=== PATIENT | female | born 1945 | race Caucasian/White ===

== ENCOUNTER 2019-10-19 21:42 | Emergency (ER) | payer MEDICARE, OTHER ==
[~2019-10-19] VITALS: Ht 180.3 cm; Wt 96.2 kg
--- OUTSIDE RECORDS SUMMARY | 2019-10-19 21:45 | XMS REPORT | Clinical Summary ---
Author Author [facility] Organization [facility] Address Unknown Phone Unavailable Care Team Providers Care Bridge Game Director Name Role Phone Danish Del Toro MD PCP Allergies Comments Active Allergy Reactions Severity Noted Date Codeine Itching 09/26/2016 Medications End Date Status Medication Sig Dispensed Refills Start Date Active LEVOTHYROXINE SODIUM Take by 0 (LEVOTHYROXINE ORAL) mouth. Active traMADol (ULTRAM) 50 mg Take 50 mg by 0 tablet mouth every 6 (six) hours as needed for moderate pain. Active Problems Problem Noted Date History of bowel diversion surgery 04/24/2017 Ileostomy present 04/22/2017 CVA (cerebral vascular accident) 11/19/2016 Perforated bowel 10/11/2016 Polymicrobial bacterial infection 10/10/2016 Anemia due to blood loss 10/09/2016 S/P exploratory laparotomy 10/07/2016 S/P R hemicolectomy 10/07/2016 Acute ischemic stroke 10/07/2016 Purulent peritonitis 10/07/2016 Hyperglycemia 10/06/2016 SALLY (acute kidney injury) 10/06/2016 Lactic acidosis 10/06/2016 Hepatic insufficiency 10/06/2016 Bowel perforation 10/06/2016 Aortic thrombus (distal ascending) 10/06/2016 Benign polycythemia due to fall in plasma volume Acute respiratory insufficiency 10/06/2016 Possible Stenosis of right carotid artery 10/06/2016 Incomplete paraplegia 10/03/2016 Thoracic spondylosis with cord compression 7 Respiratory failure 10/01/2016 Thoracic stenosis 09/27/2016 Family History Medical History Relation Name Comments Thrombocytopenia Mother ITP Thrombocytopenia Sister pramod TTP age 24 Clotting disorder Neg Hx Relation Name Status Comments Father Mother (Age 86) Sister pramod Social History Date Tobacco Use Types Packs/Day Years Used Quit: 06/29/2016 Former Smoker Smokeless Tobacco: Never Used Drinks/Week oz/Week Comments Alcohol Use No Sex Assigned at Date Recorded Not on file Industry Job Start Date Occupation Not on file Not on file Not on file Travel End Travel History Travel Start No recent travel history available. Last Filed Vital Signs Not on file Plan of Treatment Health Maintenance Due Date Last Done Comments BREAST CANCER SCREENING 12/07/1997 COLONOSCOPY SCREENING 12/07/1997 SHINGLES VACCINES (#1) 12/07/1997 65+ PNEUMOCOCCAL VACCINE 12/07/2012 (1 of 2 - PCV13) INFLUENZA VACCINE 12/12/2019 Implants Device Identifier Shelf Expiration Date Model / Serial / L ot Implanted Type Area Manufactur er 2993 / / Kit Hmstc Mtrx W/ F2 8ml Surgiflo - Surgical N/A: N/A ETHICON [id number] Implants; [facility] Implanted: 09/27/2016 at [facility] (Quantity not on file) Extenders; Surgical Wires [id number] [place] / / Particle Hmstc Absrbl [place] 5gm Surgical N/A: N/A MEDAFOR Mph - [id number] Implants; Implanted: 10/06/2016 at [facility] (Quantity not on file) Extenders; Surgical Wires [id number] / / Drain Wnd Chnl 24fr 5/16in Rnd Hbls Surgical N/A: N/A BARD Fl-Flut Angie - [id number] Implants; MEDICAL Implanted: 10/06/2016 at [facility] (Quantity not on file) Extenders; Surgical Wires [id number] [place] / / Particle Hmstc Absrbl [place] 5gm Surgical N/A: N/A MEDAFOR Mph - [id number] Implants; Implanted: 04/22/2017 at [facility] (Quantity not on file) [facility]; Surgical Wires [id number] [place] / / Particle Hmstc Absrbl [place] 5gm Surgical N/A: N/A MEDAFOR Mph - [id number] Implants; Implanted: 04/22/2017 at [facility] (Quantity not on file) [facility]; Surgical Wires Results Not on fileafter 10/18/2018 Insurance Type Payer Benefit Subscriber ID Effective Phone Address Plan / Dates Group [facility] MEDICARE [facility] xxxxxxxxx 2017-P MEDICARE resent HMO/PPO [employer] Other 1945 [id number] (Home) [place] [id number] Advance Directives For more information, please contact: [phone] 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
--- OUTSIDE RECORDS SUMMARY | 2019-10-19 21:45 | XMS REPORT | Continuity of Care Document ---
Author Author [facility] Organization [facility] Address [address] [place] [address] Phone Unavailable Care Team Providers Care Tomato Paste Maker Name Role Phone Clinton Mcclendon MD PCP DR PRABHAKAR GARCIA Unavailable VISH, DR Julia VELAZQUEZ [employer] Unavailable DANISH MCCLENDON Unavailable DR PRABHAKAR GARCIA Unavailable VISH, DR Julia Ortiz Unavailable DANISH MCCLENDON Unavailable Payers Payer Name Policy Type Policy Number Effective Date Expiration Date S ource Problems Condition Name Condition Details Condition Category Status Onset Date Resolution Date Last Treatment Date Treating Clinician Comments Source History of bowel diversion surgery History of bowel diversion vivar rgery Disease Active 2017-04-24 00:00:00 [place] [facility] Ileostomy present Ileostomy present Disease Active 2017-04-22 00:00:00 Ruperto Colon CVA (cerebral vascular accident) CVA (cerebral vascular accident ) Disease Active 2016-11-19 00:00:00 [place] Perforated bowel Perforated bowel Disease Active 2016-10-11 00:00:00 Ruperto Colon Polymicrobial bacterial infection Polymicrobial bacterial infect ion Disease Active 2016-10-10 00:00:00 [place] [facility] Anemia due to blood loss Anemia due to blood loss Disease Acti ve 2016-10-09 00:00:[address] S/P exploratory laparotomy S/P exploratory laparotomy Disease Active 2016-10-07 00:00:[address] S/P R hemicolectomy S/P R hemicolectomy Disease Active 2016-10-07 00:00 :00 Ruperto Colon Acute ischemic stroke Acute ischemic stroke Disease Active 11-15-27 00:00:00 Ruperto Salas t Purulent peritonitis Purulent peritonitis Disease Active 00:00:00 Ruperto Colon Hyperglycemia Hyperglycemia Disease Active 2016-10-06 00:00:00 Ruperto Colon SALLY (acute kidney injury) SALLY (acute kidney injury) Disease Ac tive 2016-10-06 00:00:[address] Lactic acidosis Lactic acidosis Disease Active 2016-10-06 00:00:00 Ruperto Colon Hepatic insufficiency Hepatic insufficiency Disease Active 11-14-26 00:00:00 Ruperto hopson Bowel perforation Bowel perforation Disease Active 2016-10-06 00:00:00 Ruperto Colon Aortic thrombus (distal ascending) Aortic thrombus (distal ascen ding) Disease Active 2016-10-06 00:00:00 [facility] Benign polycythemia due to fall in plasma volume Benig n polycythemia due to fall in plasma volume Disease Active 2016-10-06 00:00:00 Ruperto Colon Acute respiratory insufficiency Acute respiratory insufficiency Dis ease Active 2016-10-06 00:00:00 Ruperto Colon Possible Stenosis of right carotid artery Possible Myles nosis of right carotid artery Disease Active 2016-10-06 00:00:00 Sav Colon Incomplete paraplegia Incomplete paraplegia Disease Active 11-15-23 00:00:00 Ruperto Salas t Thoracic spondylosis with cord compression Thoracic sp ondylosis with cord compression Disease Active 2016-10-01 00:00:00 Ruperto Colon Respiratory failure Respiratory failure Disease Active 2016-10-01 00:00 :00 Ruperto Colon Thoracic stenosis Thoracic stenosis Disease Active 2016-09-27 00:00:00 Ruperto Colon Allergies, Adverse Reactions, Alerts Allergy Name Allergy Type Status Severity Reaction(s) Onset Date Inacti ve Date Treating Clinician Comments Source Codeine Propensity to adverse reactions to drug Active Itching 2016-09-26 00:00:00 Ruperto Salas t No Known Allergies DA Active U 2012-02-21 00:00:00 [facility] [place] Family History Family Member Diagnosis Comments Start Date Stop Date Source Natural mother Thrombocytopenia Sav Colon Natural sister Thrombocytopenia Sav Colon Family member Clotting disorder Sav Colon Social History Social Habit Start Date Stop Date Quantity Comments Source Sex Assigned At [facility] Alcohol intake 2018-03-08 00:00:00 2018-03-08 00:00:00 Current non-drinker of alcohol (finding) Ruperto Colon History of tobacco use 2016-06-29 00:00:00 Current smoker Ruperto Colon Smoking Status Start Date Stop Date Source Former smoker 2018-03-08 00:00:00 2018-03-08 00:00:00 Ruperto Colon Medications Ordered Medication Name Filled Medication Name Start Date Stop Da te Current Medication? Ordering Clinician Indication Dosage Frequency Signature (SIG) Comments Components Source LEVOTHYROXINE SODIUM (LEVOTHYROXINE ORAL) 2017-04-28 13:35:14 Yes Take by mouth. Ruperto Colon traMADol (ULTRAM) 50 mg tablet 2017-04-28 13:35:14 Yes 50mg Q6H Take 50 mg by mouth every 6 (six) hours as needed for moderate pain. Ruperto Colon Procedures This patient has no known procedures. Plan of Care Planned Activity Planned Date Details Comments Source Future Scheduled Test 2019-12-12 00:00:00 INFLUENZA VACCINE [code = INFLUENZA VACCINE] [facility] Future Scheduled Test 2012-12-07 00:00:00 65+ PNEUMOCOCCAL V ACCINE (1 of 2 - PCV13) [code = 65+ PNEUMOCOCCAL VACCINE (1 of 2 - PCV13)] [facility] Future Scheduled Test 1997-12-07 00:00:00 BREAST CANCER SCRE ENING [code = BREAST CANCER SCREENING] [facility] Future Scheduled Test 1997-12-07 00:00:00 COLONOSCOPY SCREEN ING [code = COLONOSCOPY SCREENING] [facility] Future Scheduled Test 1997-12-07 00:00:00 SHINGLES VACCINES (#1) [code = SHINGLES VACCINES (#1)] Ruperto Colon Encounters Start Date/Time End Date/Time Encounter Type Admission Type [facility] Care Department Encounter ID Source 2018-11-09 20:01:00 2018-11-09 21:00:00 Emergency E PRABHAKAR GARCIA [facility] [id number] [facility] 2018-10-22 19:33:00 2018-10-22 21:12:00 Emergency DEJAN QUINTANA [facility] ECC [id number] [facility] 2017-07-10 11:11:00 2017-07-10 23:59:00 Outpatient DANISH OLIVER [facility] RAD [id number] [facility] Results Test Description Test Time Test Comments Results Result Comments Source - PET/CT TUMOR SK MIDTH 2018-09-22 16:19:00 FAX: Patty Richter MD [phone] [place]: St: REG FAX: Danish Lang MD [phone] Name: JOHN COBIAN [facility] : 1945 Age/S: 72/F [address] [facility] Unit #: [id number] Loc: [place] [address] Phys: Patty Deluna MD Acct: [id number] Dis Date: Status: REG CLI PHONE #: [phone] Exam Date: 09/22/2018 1220 FAX #: [phone] Reason: R91.8 EXAMS: CPT CODE: [id number] PET/CT TUMOR SK MIDTH [id number] HISTORY: R91.8. COMPARISON: None available. PET/CT SCAN: 11 mCi of FDG administered. Images obtained from the skull base to the upper thighs 1 hour postinjection. Blood glucose level = 78 mg/dL. HEAD AND NECK: Intense uptake within the brain parenchyma limited evaluation. Physiologic pharyngeal uptake. CHEST: No lung parenchymal uptake is noted. Left basal subsegmental atelectasis and scarring. Slight loss of lung volume and shift the mediastinum towards the left. No abnormal uptake. No pathologic hilar, mediastinal or axillary uptake or adenopathy. No chest wall or breast uptake. Mild left thyromegaly without abnormal uptake. ABDOMEN: No liver or adrenal diastases or uptake. No pancreatic or splenic uptake. Excretion from both kidneys without abnormal uptake. No pathologic mesenteric, retroperitoneal or retrocrural adenopathy or uptake. Minimal excretion into the bowel. Colostomy in the right lower abdomen wall. No abnormal uptake. Patient is post partial right hemicolectomy. PELVIS: Extensive excretion into the sigmoid colon with severe diverticulosis. Excretion into the urinary bladder. No pelvic pathologic adenopathy. MUSCULOSKELETAL: No abnormal uptake. IMPRESSION: Nodular atelectasis in the left lateral lung base and lower lobe with scarring without abnormal uptake. No pathologic hilar, mediastinal or axillary adenopathy or uptake. Colostomy in the right lower abdominal wall without abnormal uptake. Patient is post right hemicolectomy. No abnormal uptake within the colostomy site. Excretion into the sigmoid colon with extensive diverticulosis. PAGE 1 Signed Report (CONTINUED) FAX: Patty Richter MD [phone] [place]: St: REG FAX: Dansih Lang MD [phone] Name: JOHN COBIAN [facility] : 1945 Age/S: 72/F [address] [facility] Unit #: [id number] Loc: [place] [address] Phys: Patty Deluna MD Acct: [id number] Dis Date: Status: REG CLI PHONE #: [phone] Exam Date: 09/22/2018 1220 FAX #: [phone] Reason: R91.8 EXAMS: CPT CODE: [id number] PET/CT TUMOR SK BS MIDTH 63715 <Continued> at 1619 Reported and signed by: Coy Carreon M.D. CC: Patty Deluna MD; Danish Mcclendon MD Technologist: Farrukh Diaz [facility] Trnscrd Date/Time/By: 09/22/2018 (3103) : By: [email or web address] Orig Print D/T: S: 09/22/2018 (6230) PAGE 2 Signed Report WID-U/S THYROID 2017-07-10 11:57:13 THYROID ULTR ASOUNDLocation code: [id number] history: Nontoxic thyroid noduleComparison: NoneTechnique: Grayscale and selective color Doppler ultrasound of the thyroid wasperformed.Findings:Right lobe:4 x 1.6 x 1.6 cmLeft lobe:4.1 x 2.6 x 2.3 cmIsthmus: 0.3 cmHypervascular solid nodule is centered in the left lobe of the thyroidmeasuring 3 x 2.3 x 2.4 cm. The remainder of the thyroid demonstrate nor malechogenicity and echotexture.Impression:Hypervascular solid nodule involving the left lobe of the thyroid, 3 x 2.3 x2.4 cm. Fine-needle aspiration is recommended. (If setting of hyperthyroidism, nuclear medicine scan may be considered toevaluate for a hyperfunctioning nodule prior to biopsy).
[2019-10-19] MEDS ORDERED: SODIUM CHLORIDE 0.9% 1000ML 1,000 ML IV STA ×2 (21:47)
[2019-10-19] MEDS ORDERED: MECLIZINE HCL 12.5 MG TAB PO STA (21:47)
--- NOTE | 2019-10-19 21:57 | Emergency Department Note ---
History of Present Illnes History of Present Illness History of Present Illness This is a 73 year old female with acute onset of right posterior head pain at 1200 followed by acute onset of abrupt dizziness at 1800 .Patient states that she started seeing "spots" out of her left eye with sense of dysequilibrium and motion. EMS contacted for intractable n/v Historian: Patient Arrival Mode: HFD EMS Treatment CLERICAL ASSISTANT: See EMS Report Mining Engineer Required: No Onset (how long ago): hour(s) Location: Right posterior head pain Severity: moderate Onset quality: gradual Duration (how long): hour(s) (9) Timing of current episode: constant Progression: worsening Chronicity: new Relieving factors: none Exacerbating factors: movement Associated symptoms: headaches, nausea/vomiting Treatments prior to arrival: none Risk factors: prior h/o CVA Past Medical/Family History Physician Review I have reviewed the patient's past medical and family history. Any updates have been documented here. Past Medical History Recent Fever: No Clinical Suspicion of Infectio: No New/Unexplained Change in Ment: No Past Medical History: CVA Past Surgical History: None Social History Smoking Cessation: Never Smoker Any Illegal Drug Use: No Review of Systems Review of Systems Constitutional: no symptoms EENTM: no symptoms Cardiovascular: no symptoms Respiratory: no symptoms Gastrointestinal: nausea, vomiting Genitourinary: no symptoms Musculoskeletal: no symptoms Neurological: headache, other (dizziness) Psychological: no symptoms Endocrine: no symptoms Hematological/Lymphatic: no symptoms Review of other systems All other systems reviewed and negative. Physical Exam Related Data Allergies: Coded Allergies: codeine (Verified Allergy, Intermediate, 10/19/19) Triage Vital Signs Vital Signs Date Time Temp Pulse Resp B/P (MAP) Pulse Ox O2 Delivery O2 Flow Rate FiO2 10/19/19 21:59 98.6 65 17 135/76 100 Vital signs reviewed: Yes Physical Exam CONSTITUTIONAL Constitutional: well-developed, well-nourished HENT HENT: normocephalic, atraumatic, oropharynx clear/moist, nose normal HENT L/R: left ext ear normal, right ext ear normal EYES Eyes: PERRL, conjunctivae normal NECK Neck: ROM normal PULMONARY Pulmonary: effort normal, breath sounds normal CARDIOVASCULAR Cardiovascular: regular rhythm, heart sounds normal, capillary refill normal, normal rate GASTROINTESTINAL Abdominal: soft, nontender, bowel sounds normal GENITOURINARY Genitourinary: exam deferred SKIN Skin: warm, dry MUSCULOSKELETAL Musculoskeletal: ROM normal NEUROLOGICAL Neurological: alert, oriented x 3, no gross motor or sensory deficits, other (NIH 1) PSYCHOLOGICAL Psychological: mood/affect normal, judgement normal Results Imaging Imaging results reviewed: Yes Impressions [facility] [address] [address] Patient Name: JOHN COBIAN MR #: [id number] : 1945 Age/Sex: 73/F Req #: [id number] Adm Physician: Ordered by: JACKIE LOPEZ DO Report #: [id number] Location: ER Room/Bed: Procedure: [id number] CT/CTA NECK Exam Date: 10/19/19 Exam Time: 2245 REPORT STATUS: Signed Examination: Cervical and Intracranial CT Angiogram with Contrast History: Nausea, vomiting, dizziness. Comparison studies: None Technique: Axial images were obtained from the thoracic inlet. Coronal and sagittal images reconstructed from the axial data. Intravenous contrast: 100 mL of Isovue 370. Degree of stenosis at the carotid bulbs, if present, will be calculated using NASCET criteria where the smallest diameter at the location of stenosis is compared to the diameter of the more distal non-diseased vessel lumen. Computer generated maximum intensity projection and 3D images of the cervical and intracranial anterior and posterior circulations were performed on a separate workstation. Dose modulation, iterative reconstruction, and/or weight based adjustment of the mA/kV was utilized to reduce the radiation dose to as low as reasonably achievable. Findings: Head CT: Chronic right middle cerebral artery territory (right subcentral and supramarginal gyri, operculum, insula). CTA neck: Aortic arch and major vessels: Patent. Common carotid arteries: Patent Cervical carotid bifurcations: Right: Patent. Left :Patent. Internal carotid arteries: Right: Patent. Left: Patent. Vertebral arteries: Patent. CTA head: Internal carotid arteries: Patent. Nonstenotic atherosclerotic calcific plaque of the bilateral cavernous segments. Anterior cerebral arteries: Patent A1 and A2. Middle cerebral arteries: Patent M1 and M2. Posterior cerebral arteries: Patent P1 and P2. Vertebro-basilar system: Patent basilar artery. Occlusion of the right V3 and V4 segments. The right posterior inferior cerebellar artery is not present. Anatomical variants: Anterior communicating artery :Present Posterior communicating arteries: Not visualized. Vertebral arteries: Codominant. IMPRESSION: 1. 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 The right posterior inferior cerebellar artery is not present. Brain MRI is suggested for further evaluation. 2. Nonstenotic atherosclerotic calcific plaque of the bilateral cavernous internal carotid arteries. 3. Chronic right middle cerebral artery territory infarct. Signed by: Dr. Joyce Santillan M.D. on 10/20/2019 12:40 AM Dictated By: JOYCE RAGLAND MD Transcribed By: REBECCA on 10/20/1939 COPY TO: JACKIE LOPEZ DO~ Procedures 12 Lead ECG Interpretation Mining Engineer: Interpreted by ED physician Date: Oct 19, 2019 Time: 22:27 Prior ORDER SELECTOR tracings: reviewed Rhythm: sinus rhythm Ectopy: PJC's Rate: normal QRS axis: normal ST segments normal: Yes T waves normal: Yes Clinical Impression: non-specific ECG Critical Care Time Total Critical Care Time (min): 31 Critcal care necessary due to: VENDOR REPRESENTATIVES failure or compromise Critcal care time spent by me: develop tx plan w patient/surrogate, discussion w consultants, discussion w primary provider, examination of patient, order/review laboratory studies, re-evaluation of patient condition Assessment & Plan Assessment & Plan Final Impression: (1) Vertigo (2) Occlusion of right vertebral artery Assessment & Plan Patient with findings concerning for CVA of the posterior circulation. Case d/w with Dr Prince who recommended transfer to higher level of care. Patient transferred to a neuro-ICU for definitive evaluation of R vertebral artery occlusion. Patient to be started on heparin gtt. Depart Disposition: TRANS TO OTHER [facility] Last Vital Signs Date Time Temp Pulse Resp B/P (MAP) Pulse Ox O2 Delivery O2 Flow Rate FiO2 10/20/19 02:48 99.1 90 19 119/58 96 Medications in the ED Sodium Chloride 1,000 ml @ 0 mls/hr Q0M STAT IV Last administered on 10/19/19at 22:20; Admin Dose 999 MLS/HR; Start 10/19/19 at 21:47; Stop 10/19/19 at 21:49; Status DC Sodium Chloride 1,000 ml @ 0 mls/hr Q0M STAT IV ; Start 10/19/19 at 21:47; Stop 10/19/19 at 22:17; Status DC Meclizine HCl 12.5 mg ONCE STAT PO Last administered on 10/19/19at 22:43; Admin Dose 12.5 MG; Start 10/19/19 at 21:47; Stop 10/19/19 at 21:49; Status DC Ondansetron HCl 4 mg NOW STAT IV Last administered on 10/19/19at 22:15; Admin Dose 4 MG; Start 10/19/19 at 22:15; Stop 10/19/19 at 22:19; Status DC Heparin Sodium/ Dextrose 1000 unit/Dextrose 250 ml @ 0 mls/hr TITRATE IV Last administered on 10/20/19at 01:24; Admin Dose 10 MLS/HR; Start 10/20/19 at 01:00; Stop 10/20/19 at 02:49; Status DC Heparin Sodium/ Dextrose 25,000 unit STK-MED ONCE IV ; Start 10/20/19 at 01:20; Stop 10/20/19 at 01:15; Status DC Ketorolac Tromethamine 30 mg ONCE STAT IV Last administered on 10/20/19at 02:20; Admin Dose 30 MG; Start 10/20/19 at 02:04; Stop 10/20/19 at 02:09; Status DC Iopamidol 74,000 mg STK-MED ONCE INJ ; Start 10/20/19 at 02:40; Stop 10/20/19 at 02:35; Status DC Sodium Chloride 100 ml @ ud STK-MED ONCE .ROUTE ; Start 10/20/19 at 02:42; Stop 10/20/19 at 02:36; Status DC Sodium Chloride 1,000 ml @ 0 mls/hr Q0M STAT IV ; Start 10/19/19 at 21:47; Stop 10/19/19 at 21:49; Status DC Sodium Chloride 1,000 ml @ 0 mls/hr Q0M STAT IV ; Start 10/19/19 at 21:47; Stop 10/19/19 at 21:49; Status DC Meclizine HCl 12.5 mg ONCE STAT PO ; Start 10/19/19 at 21:47; Stop 10/19/19 at 21:49; Status DC JACKIE LOPEZ DO Oct 19, 2019 21:57
[2019-10-19 22:14] LABS: BASOPHILS % 0.3 % (0.0-1.0); EOSINOPHILS % 0.1 % (0.0-6.0); HEMOGLOBIN 14.9 g/dL (12.0-16.0); LYMPHOCYTES # (AUTO) 1.6 (1.0-3.2); LYMPHOCYTES % 10.9 % (18.0-39.1); MEAN CORPUSCULAR HEMOGLOBIN 29.4 pg (28-32); MEAN CORPUSCULAR HGB CONC 30.4 g/dL (31-35); MEAN CORPUSCULAR VOLUME 96.6 fL (81-99); MONOCYTES # (AUTO) 1.5 (0.2-0.8); MONOCYTES % 9.7 % (4.4-11.3); NEUTROPHILS # (AUTO) 11.8 (2.1-6.9); NEUTROPHILS % 78.1 % (38.7-80.0); PLATELET COUNT 556 x10e3/uL (140-360); RED BLOOD COUNT 5.07 x10e6/uL (3.6-5.1); RED CELL DISTRIBUTION WIDTH 15.6 % (11.7-14.4)
[2019-10-19] MEDS ORDERED: ONDANSETRON HCL INJ 2MG/ML 2ML 2 MG/ML VIAL IV STA (22:15)
[2019-10-19 22:25] LABS: INR 0.88; PROTHROMBIN TIME 12.5 seconds (11.9-14.5)
[2019-10-19 22:29] LABS: ALBUMIN 3.2 g/dL (3.5-5.0); ALBUMIN/GLOBULIN RATIO 0.9 (0.8-2.0); ANION GAP 15.8 mmol/L (8-16); CALCIUM 8.7 mg/dL (8.4-10.2); CREATININE, SERUM 1.13 mg/dL (0.57-1.11); POTASSIUM 3.8 mmol/L (3.5-5.1)
--- NOTE | 2019-10-20 00:43 | Diagnostic Imaging Report ---
Examination: Cervical and Intracranial CT Angiogram with Contrast History: Nausea, vomiting, dizziness. Comparison studies: None Technique: Axial images were obtained from the thoracic inlet. Coronal and sagittal images reconstructed from the axial data. Intravenous contrast: 100 mL of Isovue 370. Degree of stenosis at the carotid bulbs, if present, will be calculated using NASCET criteria where the smallest diameter at the location of stenosis is compared to the diameter of the more distal non-diseased vessel lumen. Computer generated maximum intensity projection and 3D images of the cervical and intracranial anterior and posterior circulations were performed on a separate workstation. Dose modulation, iterative reconstruction, and/or weight based adjustment of the mA/kV was utilized to reduce the radiation dose to as low as reasonably achievable. Findings: Head CT: Chronic right middle cerebral artery territory (right subcentral and supramarginal gyri, operculum, insula). CTA neck: Aortic arch and major vessels: Patent. Common carotid arteries: Patent Cervical carotid bifurcations: Right: Patent. Left :Patent. Internal carotid arteries: Right: Patent. Left: Patent. Vertebral arteries: Patent. CTA head: Internal carotid arteries: Patent. Nonstenotic atherosclerotic calcific plaque of the bilateral cavernous segments. Anterior cerebral arteries: Patent A1 and A2. Middle cerebral arteries: Patent M1 and M2. Posterior cerebral arteries: Patent P1 and P2. Vertebro-basilar system: Patent basilar artery. Occlusion of the right V3 and V4 segments. The right posterior inferior cerebellar artery is not present. Anatomical variants: Anterior communicating artery :Present Posterior communicating arteries: Not visualized. Vertebral arteries: Codominant. IMPRESSION: 1. 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 The right posterior inferior cerebellar artery is not present. Brain MRI is suggested for further evaluation. 2. Nonstenotic atherosclerotic calcific plaque of the bilateral cavernous internal carotid arteries. 3. Chronic right middle cerebral artery territory infarct. Signed by: Dr. Joyce Santillan M.D. on 10/20/2019 12:40 AM
[2019-10-20] MEDS ORDERED: HEPARIN 25,000 UNIT 1,000 UNIT in DEXTROSE 5% 250ML 250 ML IV SCH (01:00)
[2019-10-20] MEDS ORDERED: HEPARIN 25,000 UNIT DRIP IV ONE (01:20)
[2019-10-20] MEDS ORDERED: KETOROLAC TROMETHAMINE 30 MG/ML VIAL IV STA (02:04)
[2019-10-20] MEDS ORDERED: IOPAMIDOL 370 MG/ML 200 ML INFUS..BTL INJ ONE (02:40)
[2019-10-20] MEDS ORDERED: SODIUM CHLORIDE 0.9% 100 ML ONE (02:42)
--- NOTE | 2019-10-21 15:54 | Diagnostic Imaging Report ---
EXAMINATION: CHEST SINGLE (PORTABLE) INDICATION: ^ERMD ORDER ^Y COMPARISON: None FINDINGS: AP view TUBES and LINES: None. LUNGS: Limited by body habitus and low lung volumes. Left lower lung field hazy opacification. PLEURA: No visible pneumothorax. Small left pleural effusion. HEART AND MEDIASTINUM: The cardiomediastinal silhouette is enlarged. BONES AND SOFT TISSUES: No acute osseous lesion. Partially seen cervical spine fusion hardware. Soft tissues are unremarkable. UPPER ABDOMEN: No free air under the diaphragm. IMPRESSION: Small left pleural effusion with adjacent atelectasis and/or pneumonia in the appropriate clinical context. Signed by: Dr. Daljit Salguero MD on 10/19/2019 11:13 PM
== END 2019-10-20 02:49 | disposition other institution (70) ==
LOC: ER 21:42
DX: R51 Headache (principal); R11.2 Nausea with vomiting, unspecified; R42 Dizziness and giddiness; F17.210 Nicotine dependence, cigarettes, uncomplicated
CPT/HCPCS: 36415; 70496; 70498; 71045; 80053; 82550; 82553; 83880; 84484; 85025; 85610; 85730; 93005; 99284; J1885; J2405; J7030; J7050; Q9967